=== PATIENT | male | born 1995 | race Two or more races ===

== ENCOUNTER 2020-12-30 00:15 | Emergency (ER) | payer MEDICAID, OTHER ==
[~2020-12-30] VITALS: Ht 170.2 cm; Wt 74.8 kg
[2020-12-30] MEDS ORDERED: BACITRACIN TOP OINT 1 UD PKG TOP ONE (01:45)
[2020-12-30] MEDS ORDERED: TETANUS-DIPTH-ACEL PERTUSSIS 0.5ML SYR Tdap IM ONE (02:15)
[2020-12-30] MEDS ORDERED: cefTRIAXone SOD 1,000 MG VL IM ONE (02:15)
[2020-12-30 03:01] VITALS: BP 106/70
== END 2020-12-30 03:03 | disposition home or self-care (01) ==
LOC: ER 00:23
DX: S61.214A Laceration without foreign body of right ring finger without damage to nail, initial encounter (principal); S61.212A Laceration without foreign body of right middle finger without damage to nail, initial encounter; W26.8XXA Contact with other sharp object(s), not elsewhere classified, initial encounter; Y93.89 Activity, other specified; Y92.89 Other specified places as the place of occurrence of the external cause; Y99.8 Other external cause status; Z23 Encounter for immunization
CPT/HCPCS: 12002; 90471; 90715; 96372; 99284; J0696